=== PATIENT | male | born 1980 | race Caucasian/White ===

== ENCOUNTER 2020-04-27 14:34 | Emergency (ER) | payer OTHER ==
[2020-04-27 15:32] LABS: HEMATOCRIT 42.9 % (39.0-50.0); HEMOGLOBIN 14.8 g/dl (14.0-18.0); IMMATURE GRANULOCYTES 0.4 % (0.0-5.0); MEAN CORPUSCULAR HGB CONC 34.5 g/dL CAL (32.0-36.0); NEUT# 5.82 thou/uL (1.82-7.42); RED BLOOD COUNT 4.93 mill/uL (4.70-6.10); RED CELL DISTRI WIDTH 15.8 % (11.5-15.5)
[2020-04-27] MEDS ORDERED: LOPRESSOR25 MG PO (15:42)
[2020-04-27] MEDS ORDERED: LISINOPRIL5 MG PO (15:43)
[2020-04-27] MEDS ORDERED: LASIX 20 MG TAB20 MG PO (15:43)
[2020-04-27] MEDS ORDERED: DEPAKOTE250 MG PO (15:44)
[2020-04-27 15:51] LABS: ACT PARTIAL THROMBO TIME 30.7 SECONDS (20.0-32.5); INTERNATIONAL NORMALIZED RATIO 1.1 RATIO (0.7-1.3); PROTHROMBIN TIME 11.4 SECONDS (9.0-12.5)
[2020-04-27 16:14] LABS: ALKALINE PHOSPHATASE 58 u/l (38-126); ANION GAP 11 (6-22 (CALC)); BILIRUBIN, TOTAL 0.5 mg/dL (0.0-1.4); BUN 10 mg/dL (9-20); BUN/CREATININE RATIO 12 (12-20 (CALC)); CARBON DIOXIDE 26 mmol/l (22-30); CHLORIDE 106 mmol/l (95-108); CREATININE 0.8 mg/dL (0.7-1.3); GFR > 60 ML/MIN (>=60 (CALC)); GFR FOR AFR.AMER. > 60 ML/MIN (>=60 (CALC)); POTASSIUM 3.6 mmol/l (3.5-5.1); SGOT/AST 23 u/l (17-59); SODIUM 140 mmol/l (137-146); TOTAL PROTEIN 8.3 g/dL (6.3-8.2)
[2020-04-27 16:26] LABS: MYOGLOBIN 64 ng/mL (0 - 121)
[2020-04-27] MEDS ORDERED: EPIPEN 2-P0.3 MG/0.3 SC (17:22)
[2020-04-27] MEDS ORDERED: CLONIDINE0.1 MG PO (17:22)
[2020-04-27] MEDS ORDERED: MEDDOSEPAK PO (17:22)
[2020-04-27] MEDS ORDERED: METROGEL1 % EX (17:23)
[2020-04-27 18:00] VITALS: BP 155/97
== END 2020-04-27 18:00 | DRG 916 ==
LOC: ED 14:34
PROVIDERS: Emergency Medicine
DX: T78.3XXA Angioneurotic edema, initial encounter (principal); L71.9 Rosacea, unspecified; I10 Essential (primary) hypertension

== ENCOUNTER 2020-07-26 17:03 | Emergency (ER) | payer OTHER ==
[~2020-07-26] VITALS: Ht 175.3 cm; Wt 80.0 kg
[~2020-07-26 17:03] MED LIST: CLONIDINE0.1 MG PO; DEPAKOTE250 MG PO; EPIPEN 2-P0.3 MG/0.3 SC; LASIX 20 MG TAB20 MG PO; LISINOPRIL5 MG PO; LOPRESSOR25 MG PO; MEDDOSEPAK PO; METROGEL1 % EX
[2020-07-26 17:28] LABS: HEMATOCRIT 40.2 % (39.0-50.0); HEMOGLOBIN 13.5 g/dl (14.0-18.0); IMMATURE GRANULOCYTES 0.4 % (0.0-5.0); MEAN CELL VOLUME 87.4 fL CALC (80.0-100.0); MEAN CORPUSCULAR HGB 29.3 pG CALC (26.0-32.0); MEAN CORPUSCULAR HGB CONC 33.6 g/dL CAL (32.0-36.0); NEUT# 9.59 thou/uL (1.82-7.42); RED BLOOD COUNT 4.6 mill/uL (4.70-6.10); RED CELL DISTRI WIDTH 15.2 % (11.5-15.5)
[2020-07-26] MEDS ORDERED: HYDROCHLOROT25 MG PO (17:37)
[2020-07-26] MEDS ORDERED: LOPRESSOR50 M2 PO (17:37)
[2020-07-26] MEDS ORDERED: HYDRALAZINE10 M2 PO (17:38)
[2020-07-26] MEDS ORDERED: DEPAKOTE500 MG PO (17:38)
[2020-07-26] MEDS ORDERED: LORATADINE10 M1 PO (17:39)
[2020-07-26 17:50] LABS: ALBUMIN 4.3 g/dL (3.2-5.0); ALKALINE PHOSPHATASE 68 u/l (38-126); ANION GAP 17 (6-22 (CALC)); BILIRUBIN, TOTAL 0.4 mg/dL (0.0-1.4); BUN 15 mg/dL (9-20); BUN/CREATININE RATIO 13 (12-20 (CALC)); CHLORIDE 106 mmol/l (95-108); CREATININE 1.1 mg/dL (0.7-1.3); GFR > 60 ML/MIN (>=60 (CALC)); GFR FOR AFR.AMER. > 60 ML/MIN (>=60 (CALC)); SGOT/AST 25 u/l (17-59); SODIUM 139 mmol/l (137-146); TOTAL PROTEIN 8.5 g/dL (6.3-8.2)
[2020-07-26 17:52] LABS: CARBON DIOXIDE 19 mmol/l (22-30)
[2020-07-26 18:02] LABS: MYOGLOBIN 41 ng/mL (0 - 121)
[2020-07-26 18:20] LABS: TSH, 3RD GENERATION 2.27 uIU/mL (0.47 - 4.68)
[2020-07-26 19:13] LABS: URINE BILIRUBIN - DIPSTICK NEGATIVE (NEGATIVE); URINE BLOOD DIPSTICK NEGATIVE (NEGATIVE); URINE COLOR YELLOW; URINE GLUCOSE - DIPSTICK NEGATIVE (NEGATIVE); URINE KETONE TRACE mg/dL (NEGATIVE); URINE LEUK ESTERASE NEGATIVE (NEGATIVE); URINE NITRITE - DIPSTICK NEGATIVE (Negative); URINE PROTEIN - DIPSTICK 100 mg/dL (NEG-TRACE); URINE SPECIFIC GRAVITY 1.025; URINE UROBILINOGEN - DIPSTICK 0.2 E.U./dL (0.2)
[2020-07-26 19:14] LABS: URINE MUCUS MODERATE hpf (NONE-FEW)
[2020-07-26 20:40] VITALS: BP 140/80
== END 2020-07-26 20:40 | disposition short-term general hospital (02) | DRG 308 ==
LOC: ED 17:03 → ED-I 19:32 → ED 20:40
PROVIDERS: Emergency Medicine
DX: R00.2 Palpitations (principal); U07.1 COVID-19; E87.2 Acidosis; E87.6 Hypokalemia; D72.829 Elevated white blood cell count, unspecified; I10 Essential (primary) hypertension; J45.909 Unspecified asthma, uncomplicated
CPT/HCPCS: J1956